=== PATIENT | female | born 1965 | race Caucasian/White ===

== ENCOUNTER 2023-11-28 17:36 | Emergency (ER) | payer OTHER, SELFPAY ==
[2023-11-28 17:39] VITALS: BP 177/100
[2023-11-28] MEDS: NSS 1000 IV (18:27)
[2023-11-28] MEDS: TORADOL 15 MG IV (18:27)
[2023-11-28] MEDS: ZOFRAN 4 MG IV (18:27)
[2023-11-28] MEDS: COMPAZINE 10 MG IV (18:39)
[2023-11-28 18:41] LABS: % Basophils 0.5 % (0-2); % Eosinophils 0.4 % (0-6); % Immature Granulocytes 0.4 % (0-0.5); % Lymphocytes 9.9 % (20.5-51.1); % Monocytes 3.6 % (1.7-9.3); % Neutrophils 85.2 % (42.2-75.2); Absolute Basophils 0.1 10^3/uL (0-0.2); Absolute Lymphocytes 1.1 10^3/uL (1.2-3.4); Absolute Monocytes 0.4 10^3/uL (0.1-0.6); Absolute Neutrophils 9.3 10^3/uL (1.4-6.5); Hematocrit 41.9 % (37.0-47.0); Hemoglobin 14.8 g/dL (12.0-16.0); Mean Corp Hgb Conc. 35.3 g/dL (33.0-37.0); Mean Corpuscular Hgb 30.3 pg (27.0-31.0); Mean Corpuscular Volume 85.7 fL (81.0-99.0); Nucleated Red Blood Cells % 0 %; Platelet Count 265 10^3/uL (130-400); Red Blood Cell Count 4.89 10^6/uL (4.20-5.40); Red Cell Dist. Width 12.5 % (11.5-14.5); White Blood Cell Count 10.9 10^3/uL (4.8-10.8)
[2023-11-28 18:52] LABS: ALT (SGPT) 37 U/L (0-35); AST (SGOT) 29 U/L (14-36); Albumin 4.8 g/dl (3.5-5.0); Alkaline Phosphatase 55 U/L (38-126); Blood Urea Nitrogen 14 mg/dl (7-17); Calcium 10.1 mg/dl (8.4-10.2); Carbon Dioxide 26 mmol/L (22-30); Chloride 105 mmol/L (98-107); Glucose 137 mg/dl (70-99); Lipase 54 U/L (23-300); Potassium 4.3 mmol/L (3.5-5.1); Sodium 140 mmol/L (135-145); Total Bilirubin 1.1 mg/dl (0.2-1.3); Total Protein 7.9 g/dl (6.3-8.2); eGFR > 60.00
[2023-11-28 19:02] VITALS: BP 171/79
--- NOTE | 2023-11-28 19:59 | ED.GENMED ---
History of Present Illness
General
Chief Complaint: Abdominal Pain
Source: patient
Exam Limitations: none
Time Seen by Provider: 11/28/23 18:02
Nursing documentation reviewed up to this point in time: agreed with
Travel History
Have you had any contact with someone who has COVID-19?: No
Do you have any symptoms of coronavirus? Fever > 100 degrees, chills, cough, shortness of breath, sore throat, loss of taste or smell, muscle aches, or headache?: No
History of Present Illness
History of Present Illness:
Patient to ED with complaint of epigastric abdominal pain since this AM. States she has had intestinal obstructions in the past and she feels that the pain is the same. Reports nausea, vomiting. No diarrhea. No fever/chills. Brought to ED by
spouse for eval.
Past History
Past History
ED Past Medical History: GERD, HTN, Psychiatric (anxiety) and Other (Distal small bowel obstruction April 2021)
ED Past Surgical History: Cholecystectomy and
Social History
Tobacco: Non-smoker
Alcohol: None
Drug: None
Personal:
Living: with family
Employment: Employed
Family History
Family History: Hypertension
Review of Systems
Review of Systems
Allergies reviewed?: Yes
All Other Systems: ROS reviewed and negative except as documented in HPI and ROS
Constitutional: Reports no symptoms
EENT: Reports no symptoms
Respiratory: Reports no symptoms
Cardiac: Reports no symptoms
ABD/GI: Reports abdominal pain (epigastric abdominal pain), nausea and vomiting
: Reports no symptoms
Musculoskeletal: Reports no symptoms
Skin: Reports no symptoms
Neurological: Reports no symptoms
Psychiatric: Reports no symptoms
Phy Exam
General Physical Exam
General Presentation: well appearing and no apparent distress
General age: appears stated age
General Skin: warm and dry
General Habitus: normal
General Mental: alert
General Hydration: appears well hydrated
Cardiovascular Exam
Cardiovascular Exam: regular rate/rhythm and no edema
Pulmonary Exam
Pulmonary Exam: lungs clear and no respiratory distress
Gastrointestinal Exam
Gastrointestinal Exam: normal bowel sounds, soft, no organomegaly, no pulsatile mass, non distended and no cva tenderness
Palpation: generalized: Moderate tenderness (epigastric)
Musculoskeletal Exam
Musculoskeletal Exam: full ROM and neuro vasc intact
Skin Exam
Skin Exam: normal color, warm/dry and no rash
Psychiatric Exam
Psychiatric Exam: normal mood/affect
Course
Orders/Labs/Results
Orders:
Orders
11/28/23 18:14
0.9% Sodium Chloride 1000 ml [Nss] 1,000 ml IV BOLUS
Ketorolac [Toradol] 15 mg IV NOW STA
Ondansetron Injectable [Zofran] 4 mg IV NOW STA
Obstruct Series W/PA Chest [CR Obstruct Series W/pa Chest] Urgent
Comment:
Reason For Exam: upper abd. pain. hx of obstruction
11/28/23 18:24
Complete Blood Count/With Diff Urgent
Comprehensive Metabolic Panel Urgent
Lipase Urgent
11/28/23 18:36
Prochlorperazine [Compazine] 10 mg IV NOW STA
11/28/23 19:06
Urinalysis Reflex To Culture Urgent
Date Specimen was Collected: 11/28/23
Time Specimen was Collected: 19:06
Abnormal Lab Results
11/28/23
18:24
WBC 10.9 H 10^3/uL
(4.8-10.8)
Absolute Neuts (auto) 9.3 H 10^3/uL
(1.4-6.5)
Absolute Lymphs (auto) 1.1 L 10^3/uL
(1.2-3.4)
Neutrophils % 85.2 H %
(42.2-75.2)
Lymphocytes % 9.9 L %
(20.5-51.1)
Glucose 137 H mg/dl
(70-99)
ALT 37 H U/L
(0-35)
11/28/23 18:24
11/28/23 18:24
Vital Signs
Initial and Last Documented VS:
Initial Vital Signs
Temp Pulse Resp BP Pulse Ox
97.8 F 71 18 177/100 100
11/28/23 17:39 11/28/23 17:39 11/28/23 17:39 11/28/23 17:39 11/28/23 17:39
Last Documented Vital Signs
Temp Pulse Resp BP Pulse Ox
97.8 F 72 18 171/79 99
11/28/23 17:39 11/28/23 19:02 11/28/23 19:02 11/28/23 19:02 11/28/23 19:02
*Critical Care Note
Total Time (30-74mins, 75-104mins- exclusive of procedures): Not Applicable
Update Note
Update Note:
Patient improved with IVF and toradol. State pain has resolved and she is requesting discharge home. Obstructions series neg for obstruction. Will discharge home. SHe was given instructions on s/s to return to ED and she is agreeable to plan.
ED Attending Note
-
Portions of this chart may have been created with voice recognition software.� Occasional wrong word or��sound alike� substitutions may have occurred due to the inherent limitations of voice recognition software.
Discharge Plan
Departure
Patient Disposition: Home (Routine Discharge)
Date of Disposition: 11/28/23
Time of Disposition: 19:21
Patient with high blood pressure during this ER visit?: No
Condition: Good
Covid-19: Not Applicable
Discharge Problem:
Abdominal pain
Instructions: Abdominal Pain
Prescriptions:
No Action
valsartan 80 MG tablet
160 mg PO BID
lorazepam 0.5 MG tablet
0.5 mg PO PRN PRN (Reason: anxiety)
Patient Comments:
04/16/2021: last filled 11/12/17, 30 tabs for 30 days from [facility]
taurine 500 MG capsule
1,000 mg PO BID
cholecalciferol (vitamin D3) 1,000 UNITS tablet
10,000 units PO DAILY
nebivolol 10 MG tablet
40 mg PO DAILY
isradipine 2.5 MG capsule
5 mg PO HS
famotidine 40 MG tablet
40 mg PO HS
isradipine 2.5 MG capsule
2.5 mg PO DAILY
pantoprazole 40 MG tablet,delayed release (DR/EC)
40 mg PO DAILY
amoxicillin 500 mg Tablet
500 mg PO TID
Referrals:
Ruddy Goodman Jr., DO [Family Provider] - Follow up in 2-3 days
Interventions
Interventions:
*Risk Screen - Suicide Last Done: 11/28/23 18:11
*General Assessment Last Done: 11/28/23 18:11
*Neglect/Abuse Screening Last Done: 11/28/23 18:11
ED- Fall Risk Assessment Last Done: 11/28/23 18:11
*Nursing Disposition Last Done: 11/28/23 19:28
JM-Czkhqs-Yecnurdekb Assessment Last Done: 11/28/23 18:11
Discharge Date and Time
Print Language: OCCITAN
== END 2023-11-28 20:56 | disposition home or self-care (01) ==
LOC: EMR 17:36
PROVIDERS: Nurse Practitioner; EMERGENCY PHYSICIAN Emergency Medicine; FAMILY PHYSICIAN Family Medicine
DX: R10.13 Epigastric pain (principal)
CPT/HCPCS: 99284; 96374; 96375 ×2; 96361; 74022; 80053; 83690; 85025

== ENCOUNTER 2023-12-29 00:45 | Emergency (ER) | payer OTHER, SELFPAY ==
[2023-12-29 00:47] VITALS: BP 186/104
--- NOTE | 2023-12-29 00:59 | ED.GENMED ---
History of Present Illness
General
Chief Complaint: Medication Reaction
Source: patient
Exam Limitations: none
Time Seen by Provider: 12/29/23 00:52
History of Present Illness
History of Present Illness:
See MDM
Past History
Past History
ED Past Medical History: GERD, HTN, Psychiatric (anxiety) and Other (Distal small bowel obstruction April 2021)
ED Past Surgical History: Cholecystectomy and
Social History
Tobacco: Non-smoker
Alcohol: None
Drug: None
Personal:
Living: with family
Employment: Employed
Family History
Family History: Hypertension
Phy Exam
Physical Exam
Physical Exam:
See MDM
Course
Orders/Labs/Results
Orders:
Orders
12/29/23 00:59
Electrocardiogram (*1) Urgent
Reason for Study: Hypertension, Benign
EKG- Treatment ONCE
Vital Signs
Initial and Last Documented VS:
Initial Vital Signs
Temp Pulse Resp BP Pulse Ox
97.8 F 74 24 186/104 98
12/29/23 00:47 12/29/23 00:47 12/29/23 00:47 12/29/23 00:47 12/29/23 00:47
Last Documented Vital Signs
Temp Pulse Resp BP Pulse Ox
97.8 F 69 20 136/81 94
12/29/23 00:47 12/29/23 01:30 12/29/23 01:30 12/29/23 01:30 12/29/23 01:30
MDM/Problems Addressed
Differential Diagnosis Includes:
HPI and MDM Narrative:
58-year-old female presenting for evaluation of accidentally taking an extra dose of Bystolic. Patient took her Bystolic at 4:00 today. Before she went to bed, she was going to take her other blood pressure medicine but took an extra dose of
Bystolic instead. She called poison control who indicated the concern for low heart rate. She presented for further evaluation. Patient denies purposeful self injury
Physical exam
General: Well appearing and non-toxic
HEENT: protecting airway
Neck: appears supple
CV: No evidence of cyanosis. Regular rate and rhythm
Resp: No accessory muscle use
Abd: Non-distended
Extremities: No deformities
Neuro: alert
Psych: Normal affect
Skin: Intact
Problems Addressed including Acute and Chronic Conditions affecting care:
1. Accidental overdose
Acuity: acute
Prognosis: stable
Details: Patient took 1 extra dose of Bystolic. She is not bradycardic. Will monitor
Updates
After observation, heart rate still in the 60s-70s and she feels comfortable going home
Differential Diagnosis (but not limited to): Accidental overdose, medication reaction
Testing considered: Blood work
Drug therapy (if applicable): OTC meds, please see d/c instruction regarding Rx drugs
Amount and/or Complexity of Data Reviewed
Clinical info obtained from: Patient
External data reviewed: N/A
Labs I independently reviewed (but not limited to): N/A
Radiology: N/A
Pulse Ox: not hypoxic
EKG independently reviewed:sinus rhythm, normal axis, no STEMI
Logistics Management Specialist: N/A
Critical Care: N/A
Risk of Complication:
Social Determinants of health: Good social support
Discussed with other providers: N/A
Escalation of Care includes Admit/Obs: After being observed in the Emergency Department, pt stable for discharge.
Occasional wrong word or 'sound a like' substitutions may have occurred due to the inherent limitations of voice recognition software. Read the chart carefully and recognize, using context, where substitutions have occurred.
*Critical Care Note
Total Time (30-74mins, 75-104mins- exclusive of procedures): Not Applicable
ED Attending Note
-
Portions of this chart may have been created with voice recognition software.� Occasional wrong word or��sound alike� substitutions may have occurred due to the inherent limitations of voice recognition software.
Discharge Plan
Departure
Patient Disposition: Home (Routine Discharge)
Date of Disposition: 12/29/23
Time of Disposition: 01:57
Patient with high blood pressure during this ER visit?: No
Discharge Problem:
Accidental overdose
Prescriptions:
No Action
lorazepam 0.5 MG tablet
0.5 mg PO PRN PRN (Reason: anxiety)
Patient Comments:
04/16/2021: last filled 11/12/17, 30 tabs [facility]
taurine 500 MG capsule
1,000 mg PO BID
cholecalciferol (vitamin D3) 1,000 UNITS tablet
4,000 units PO DAILY
nebivolol 10 MG tablet
40 mg PO DAILY
isradipine 2.5 MG capsule
5 mg PO BID
famotidine 40 MG tablet
40 mg PO HS
ethacrynic acid [Edecrin] 25 mg Tablet
12.5 mg PO DAILY
Activity Restrictions/Additional Instructions:
As we discussed, you can continue to take your medications as prescribed.
Interventions
Interventions:
*Risk Screen - Suicide Last Done: 12/29/23 00:47
*General Assessment Last Done: 12/29/23 01:01
*Neglect/Abuse Screening Last Done: 12/29/23 00:47
ED- Fall Risk Assessment Last Done: 12/29/23 01:01
*ED COVID-19 Vaccine History Last Done: 12/29/23 01:01
ED-Skin Assessment Last Done: 12/29/23 01:15
ED- Pulmonary Assessment Last Done: 12/29/23 01:15
ED-EENT Assessment Last Done: 12/29/23 01:15
Discharge Date and Time
Print Language: SETSWANA
[2023-12-29 01:00] VITALS: BMI 41.9
[2023-12-29 01:13] VITALS: BP 141/81
[2023-12-29 01:30] VITALS: BP 136/81
== END 2023-12-29 02:08 | disposition home or self-care (01) ==
LOC: EMR 00:45
PROVIDERS: EMERGENCY PHYSICIAN Student in an Organized Health Care Education/Training Program; FAMILY PHYSICIAN Family Medicine
DX: T50.901A Poisoning by unspecified drugs, medicaments and biological substances, accidental (unintentional), initial encounter (principal); Y92.9 Unspecified place or not applicable; K21.9 Gastro-esophageal reflux disease without esophagitis; I10 Essential (primary) hypertension
CPT/HCPCS: 99283; 93005

== ENCOUNTER 2024-02-17 13:47 | Emergency (ER) | payer OTHER, SELFPAY ==
[2024-02-17 13:49] VITALS: BP 179/120
[2024-02-17 15:05] LABS: % Basophils 0.4 % (0-2); % Immature Granulocytes 0.5 % (0-0.5); % Monocytes 4.9 % (1.7-9.3); % Neutrophils 77.2 % (42.2-75.2); Absolute Basophils 0.1 10^3/uL (0-0.2); Absolute Eosinophils 0.1 10^3/uL (0-0.7); Absolute Immature Granulocytes 0.1 10^3/uL (0-0.05); Absolute Lymphocytes 1.9 10^3/uL (1.2-3.4); Absolute Monocytes 0.6 10^3/uL (0.1-0.6); Absolute Neutrophils 9.2 10^3/uL (1.4-6.5); Hematocrit 45.5 % (37.0-47.0); Hemoglobin 15.6 g/dL (12.0-16.0); Mean Corp Hgb Conc. 34.3 g/dL (33.0-37.0); Mean Corpuscular Hgb 30.1 pg (27.0-31.0); Mean Corpuscular Volume 87.8 fL (81.0-99.0); Nucleated Red Blood Cells % 0 %; Platelet Count 280 10^3/uL (130-400); Red Blood Cell Count 5.18 10^6/uL (4.20-5.40); Red Cell Dist. Width 12.3 % (11.5-14.5); White Blood Cell Count 11.9 10^3/uL (4.8-10.8)
[2024-02-17 15:19] LABS: Potassium 4.4 mmol/L (3.5-5.1); Sodium 138 mmol/L (135-145)
[2024-02-17 15:21] LABS: ALT (SGPT) 38 U/L (0-35); AST (SGOT) 31 U/L (14-36); Albumin 5.1 g/dl (3.5-5.0); Alkaline Phosphatase 64 U/L (38-126); Blood Urea Nitrogen 15 mg/dl (7-17); Calcium 10.6 mg/dl (8.4-10.2); Carbon Dioxide 24 mmol/L (22-30); Chloride 102 mmol/L (98-107); Glucose 127 mg/dl (70-99); Lipase 61 U/L (23-300); Total Bilirubin 1.3 mg/dl (0.2-1.3); eGFR > 60.00
--- NOTE | 2024-02-17 15:53 | ED.GENMED ---
History of Present Illness
General
Chief Complaint: Abdominal Pain
Source: patient
Exam Limitations: none
Time Seen by Provider: 02/17/24 15:39
History of Present Illness
History of Present Illness:
58-year-old female presents with onset of abdominal pain nausea vomiting at 9 AM this morning. She has episodes like this in the past. She does have a history of partial small bowel obstruction. She was here last for this issue in November of this
year. She notes the pain is in the center of her abdomen. Pain does not radiate to the back. No associated chest pain. She has been moving her bowels.
Past History
Past History
ED Past Medical History: GERD, HTN, Psychiatric (anxiety) and Other (Distal small bowel obstruction April 2021)
ED Past Surgical History: Cholecystectomy and
Social History
Tobacco: Non-smoker
Alcohol: None
Drug: None
Personal:
Living: with family
Employment: Employed
Family History
Family History: Hypertension
Phy Exam
Physical Exam
Physical Exam:
General: Well-appearing female no acute respiratory distress HEENT: Normocephalic
Neck supple heart: Regular rate and rhythm lungs: Clear no wheeze or rales abdomen is soft tender to the mid abdomen no guarding rebound normal bowel sounds nondistended
Extremities: No cyanosis
Course
Orders/Labs/Results
Orders:
Orders
02/17/24 13:52
Electrocardiogram (*1) Urgent
Reason for Study: Abdominal Pain
EKG- Treatment ONCE
02/17/24 14:51
Obstruct Series W/PA Chest [CR Obstruct Series W/pa Chest] Urgent
Comment:
Reason For Exam: abd pain hx sbo
02/17/24 14:55
Complete Blood Count/With Diff Urgent
Comprehensive Metabolic Panel Urgent
Lipase Urgent
02/17/24 15:48
0.9% Sodium Chloride 1000 ml [Nss] 1,000 ml IV BOLUS
Ketorolac [Toradol] 15 mg IV NOW STA
Mag Hydrox/Al Hydrox/Simeth [Maalox] 30 ml Phenobarb/Hyoscy/Atropine/Scop [] 10 ml PO NOW
Prochlorperazine [Compazine] 10 mg IV NOW STA
02/17/24 16:05
Mag Hydrox/Al Hydrox/Simeth [Maalox] 30 ml .ROUTE .STK-MED ONE
Phenobarb/Hyoscy/Atropine/Scop [] 10 ml .ROUTE .STK-MED ONE
02/17/24 16:56
CT Abd/pelvis W Iv Cont Urgent
Comment:
Reason For Exam: abdominal pain, history of sbo
Abnormal Lab Results
02/17/24
14:55
WBC 11.9 H 10^3/uL
(4.8-10.8)
Abs Immat Gran (auto) 0.1 H 10^3/uL
(0-0.05)
Absolute Neuts (auto) 9.2 H 10^3/uL
(1.4-6.5)
Neutrophils % 77.2 H %
(42.2-75.2)
Lymphocytes % 16.0 L %
(20.5-51.1)
Glucose 127 H mg/dl
(70-99)
Calcium 10.6 H mg/dl
(8.4-10.2)
ALT 38 H U/L
(0-35)
Albumin 5.1 H g/dl
(3.5-5.0)
02/17/24 14:55
02/17/24 14:55
Vital Signs
Initial and Last Documented VS:
Initial Vital Signs
Temp Pulse BP Pulse Ox
97.8 F 71 179/120 97
02/17/24 13:49 02/17/24 13:49 02/17/24 13:49 02/17/24 13:49
Last Documented Vital Signs
Temp Pulse Resp BP Pulse Ox
97.8 F 73 20 179/90 98
02/17/24 13:49 02/17/24 21:50 02/17/24 21:50 02/17/24 21:50 02/17/24 21:50
*Critical Care Note
Total Time (30-74mins, 75-104mins- exclusive of procedures): Not Applicable
Update Note
Update Note:
Obstruction series concerning for possible small bowel obstruction. This is followed by CT scan of the abdomen which does demonstrate small bowel obstruction with likely transition point in the jejunum.
Explained these results to the patient.
Recommended admission to hospital for further evaluation and treatment. Patient is declining admission. She states she is tolerating PO fluids and had piece of a turkey sandwich and has no nausea. Explained she could have further complications
including bowel ischemia, need for surgery or ostomy and further illness. Patient aware.
ED Attending Note
-
Portions of this chart may have been created with voice recognition software.� Occasional wrong word or��sound alike� substitutions may have occurred due to the inherent limitations of voice recognition software.
Discharge Plan
Departure
Patient Disposition: Home (Routine Discharge)
Date of Disposition: 02/17/24
Time of Disposition: 21:43
Patient with high blood pressure during this ER visit?: No
Discharge Problem:
Small bowel obstruction
Instructions: Small bowel obstruction
Prescriptions:
No Action
lorazepam 0.5 MG tablet
0.5 mg PO PRN PRN (Reason: anxiety)
Patient Comments:
04/16/2021: last filled 11/12/17, 30 tabs for 30 days from [facility]
taurine 500 MG capsule
1,000 mg PO BID
cholecalciferol (vitamin D3) 1,000 UNITS tablet
4,000 units PO DAILY
nebivolol 10 MG tablet
40 mg PO DAILY
isradipine 2.5 MG capsule
5 mg PO BID
famotidine 40 MG tablet
40 mg PO HS
ethacrynic acid [Edecrin] 25 mg Tablet
12.5 mg PO DAILY
Referrals:
Ruddy Goodman Jr., DO [Family Provider] -
Activity Restrictions/Additional Instructions:
As discussed, it was recommended you stay in the hospital however he decided against staying in the hospital. Please return here for any worsening pain vomiting fever or other concerning findings.
Interventions
Interventions:
*Risk Screen - Suicide Last Done: 02/17/24 16:30
*General Assessment Last Done: 02/17/24 16:30
*Neglect/Abuse Screening Last Done: 02/17/24 16:30
ED- Fall Risk Assessment Last Done: 02/17/24 21:30
*ED COVID-19 Vaccine History Last Done: 02/17/24 16:32
*Nursing Disposition Last Done: 02/17/24 21:50
LN-Jgeyob-Uubmoudrks Assessment Last Done: 02/17/24 16:30
Discharge Date and Time
Discharge Date/Time: 02/17/24 21:50
Print Language: SINHALA
[2024-02-17] MEDS: MAALOX 40 PO (16:09)
[2024-02-17] MEDS: COMPAZINE 10 MG IV (16:17)
[2024-02-17] MEDS: NSS 1000 IV (16:17)
[2024-02-17 16:30] VITALS: BP 149/95
[2024-02-17 18:03] VITALS: BP 107/76
[2024-02-17 21:50] VITALS: BP 179/90
== END 2024-02-17 21:50 | disposition home or self-care (01) ==
LOC: EMR 13:47
PROVIDERS: EMERGENCY PHYSICIAN Emergency Medicine; FAMILY PHYSICIAN Family Medicine
DX: R10.9 Unspecified abdominal pain (principal); R11.2 Nausea with vomiting, unspecified
CPT/HCPCS: 99284; 96374; 96375; 96361; 74022; 74177; 80053; 83690; 85025; 93005; Q9967

== ENCOUNTER → 2024-03-23 11:12 | Outpatient (REF) | payer OTHER, SELFPAY | LOC: HWRAD 11:12 | PROVIDERS: ATTENDING PHYSICIAN Family Medicine | DX: Z13.820 Encounter for screening for osteoporosis (principal) | CPT/HCPCS: 77080 ==

== ENCOUNTER → 2024-05-03 06:15 | Day surgery (SDC) | payer OTHER, SELFPAY | LOC: GI 06:15 | PROVIDERS: ATTENDING PHYSICIAN Internal Medicine | DX: R10.84 Generalized abdominal pain (principal); R93.3 Abnormal findings on diagnostic imaging of other parts of digestive tract; K64.8 Other hemorrhoids; R11.2 Nausea with vomiting, unspecified; K22.2 Esophageal obstruction; K44.9 Diaphragmatic hernia without obstruction or gangrene; K31.7 Polyp of stomach and duodenum; D17.5 Benign lipomatous neoplasm of intra-abdominal organs; K29.50 Unspecified chronic gastritis without bleeding; K31.89 Other diseases of stomach and duodenum; K22.89 Other specified disease of esophagus | CPT/HCPCS: 45380; 43239; 88305; 88342 ==

== ENCOUNTER → 2024-06-03 09:34 | Outpatient (REF) | payer OTHER, SELFPAY ==
[2024-06-03 10:12] LABS: % Basophils 1.1 % (0-2); % Eosinophils 5.7 % (0-6); % Immature Granulocytes 0.5 % (0-0.5); % Lymphocytes 32.9 % (20.5-51.1); % Monocytes 8.7 % (1.7-9.3); % Neutrophils 51.1 % (42.2-75.2); Absolute Basophils 0.1 10^3/uL (0-0.2); Absolute Eosinophils 0.4 10^3/uL (0-0.7); Absolute Lymphocytes 2.5 10^3/uL (1.2-3.4); Absolute Monocytes 0.7 10^3/uL (0.1-0.6); Absolute Neutrophils 3.9 10^3/uL (1.4-6.5); Hematocrit 43.6 % (37.0-47.0); Hemoglobin 14.7 g/dL (12.0-16.0); Mean Corp Hgb Conc. 33.7 g/dL (33.0-37.0); Mean Corpuscular Hgb 30.9 pg (27.0-31.0); Mean Corpuscular Volume 91.6 fL (81.0-99.0); Mean Platelet Volume 10.2 fL (7.4-10.4); Nucleated Red Blood Cells % 0 %; Platelet Count 233 10^3/uL (130-400); Red Blood Cell Count 4.76 10^6/uL (4.20-5.40); Red Cell Dist. Width 12.5 % (11.5-14.5); White Blood Cell Count 7.6 10^3/uL (4.8-10.8)
[2024-06-03 10:39] LABS: ALT (SGPT) 35 U/L (0-35); AST (SGOT) 26 U/L (14-36); Albumin 4.6 g/dl (3.5-5.0); Alkaline Phosphatase 66 U/L (38-126); Blood Urea Nitrogen 13 mg/dl (7-17); Calcium 9.5 mg/dl (8.4-10.2); Carbon Dioxide 25 mmol/L (22-30); Chloride 107 mmol/L (98-107); Glucose 108 mg/dl (70-99); HDL Cholesterol 40 mg/dl; LDL Cholesterol, Calculated 123 mg/dl; Potassium 4.3 mmol/L (3.5-5.1); Sodium 144 mmol/L (135-145); Total Bilirubin 0.5 mg/dl (0.2-1.3); Total Cholesterol 188 mg/dl (50-199); Total Protein 7.4 g/dl (6.3-8.2); Triglyceride 126 mg/dl (10-149); Very Low Density Lipoprotein 25 mg/dl (0-30); eGFR > 60.00
[2024-06-03 10:51] LABS: Vitamin D, 25-OH*** 52.8 ng/mL (30-80)
[2024-06-03 11:02] LABS: Glycohemoglobin (HgbA1c) 5.8 % (4.0-5.6)
== END ==
LOC: REG 09:34
PROVIDERS: ATTENDING PHYSICIAN Family Medicine
DX: R73.01 Impaired fasting glucose (principal); E78.5 Hyperlipidemia, unspecified; E55.9 Vitamin D deficiency, unspecified; R53.83 Other fatigue
CPT/HCPCS: 36415; 80053; 80061; 82306; 83036; 85025

== ENCOUNTER → 2024-06-29 11:31 | Outpatient (REF) | payer OTHER, SELFPAY | LOC: HWRAD 11:31 | PROVIDERS: ATTENDING PHYSICIAN Family Medicine; REFERRING PHYSICIAN Obstetrics & Gynecology | DX: D17.30 Benign lipomatous neoplasm of skin and subcutaneous tissue of unspecified sites (principal); Z12.31 Encounter for screening mammogram for malignant neoplasm of breast | CPT/HCPCS: 76882; 77063; 77067 ==

== ENCOUNTER 2024-07-09 14:49 | Emergency (ER) | payer OTHER, SELFPAY ==
[2024-07-09 14:54] VITALS: BP 173/113
[2024-07-09 15:13] LABS: % Basophils 0.3 % (0-2); % Eosinophils 0.7 % (0-6); % Immature Granulocytes 0.5 % (0-0.5); % Lymphocytes 20.2 % (20.5-51.1); % Monocytes 5.5 % (1.7-9.3); % Neutrophils 72.8 % (42.2-75.2); Absolute Eosinophils 0.1 10^3/uL (0-0.7); Absolute Immature Granulocytes 0.1 10^3/uL (0-0.05); Absolute Lymphocytes 1.9 10^3/uL (1.2-3.4); Absolute Monocytes 0.5 10^3/uL (0.1-0.6); Absolute Neutrophils 6.8 10^3/uL (1.4-6.5); Hematocrit 45.1 % (37.0-47.0); Hemoglobin 15.5 g/dL (12.0-16.0); Mean Corp Hgb Conc. 34.4 g/dL (33.0-37.0); Mean Corpuscular Hgb 30.3 pg (27.0-31.0); Mean Corpuscular Volume 88.3 fL (81.0-99.0); Mean Platelet Volume 9.9 fL (7.4-10.4); Nucleated Red Blood Cells % 0 %; Platelet Count 264 10^3/uL (130-400); Red Blood Cell Count 5.11 10^6/uL (4.20-5.40); Red Cell Dist. Width 12.2 % (11.5-14.5); White Blood Cell Count 9.4 10^3/uL (4.8-10.8)
[2024-07-09 15:24] LABS: Lactic Acid 1.7 mmol/L (0.7-2.0)
[2024-07-09 15:30] LABS: ALT (SGPT) 48 U/L (0-35); AST (SGOT) 37 U/L (14-36); Alkaline Phosphatase 58 U/L (38-126); Blood Urea Nitrogen 14 mg/dl (7-17); Calcium 9.8 mg/dl (8.4-10.2); Carbon Dioxide 22 mmol/L (22-30); Chloride 104 mmol/L (98-107); Glucose 133 mg/dl (70-99); Lipase 62 U/L (23-300); Potassium 4.3 mmol/L (3.5-5.1); Sodium 139 mmol/L (135-145); Total Bilirubin 1.4 mg/dl (0.2-1.3); Total Protein 8.1 g/dl (6.3-8.2); eGFR > 60.00
[2024-07-09 16:20] VITALS: BMI 41.8
[2024-07-09 16:25] VITALS: BP 154/99
--- NOTE | 2024-07-09 16:35 | ED.GENMED ---
History of Present Illness
<Barb Ford PA-C - Last Filed: 07/09/24 20:37>
General
Chief Complaint: Abdominal Symptoms
Source: patient
Exam Limitations: none
Time Seen by Provider: 07/09/24 16:22
Nursing documentation reviewed up to this point in time: agreed with
History of Present Illness
History of Present Illness:
Patient is a 5-year-old female with history of hypertension, small bowel obstructions presenting to the emergency department with abdominal pain. Patient reports abdominal discomfort this morning shortly followed by upper abdominal pain and
vomiting. Patient came to the emergency department given concern for small bowel obstruction as she does have a history of this. Patient states that pain somewhat subsided while in the waiting room. However�she does still endorse some mild vague
upper abdominal discomfort.
Patient denies any associated fever, chills, chest pain or shortness of breath. Patient denies any diarrhea or constipation. No urinary symptoms. No sick contacts.
She does have a history of 'pseudoobstruction' and was recommended that she come to the emergency department at next occurrence from her GI doctor.
Past History
<Barb Ford PA-C - Last Filed: 07/09/24 20:37>
Past History
ED Past Medical History: GERD, HTN, Psychiatric (anxiety) and Other (Distal small bowel obstruction April 2021)
ED Past Surgical History: Cholecystectomy and
Social History
Tobacco: Non-smoker
Alcohol: None
Drug: None
Personal:
Living: with family
Employment: Employed
Family History
Family History: Hypertension
Review of Systems
<Barb Ford PA-C - Last Filed: 07/09/24 20:37>
Review of Systems
Allergies reviewed?: Yes
All Other Systems: ROS reviewed and negative except as documented in HPI and ROS
Phy Exam
<Barb Ford PA-C - Last Filed: 07/09/24 20:37>
Physical Exam
Physical Exam:
Vitals: Hypertensive, otherwise vital signs are stable. Afebrile
General: Patient is well appearing, no acute distress. Nontoxic appearing
Skin: Warm and dry, no rashes or lesions
Head: Normocephalic, atraumatic
Eyes: Sclera nonicteric. EOMs intact. No nystagmus.
Throat: Protecting airway
Neck: Normal ROM, no cervical spine tenderness, no meningismus
Cardiac: Regular rate and rhythm, no murmurs.
Pulm: Normal respiratory effort, no wheezes, rales, rhonchi heard on exam.
Abdomen: Abdomen soft. Very mild upper abdominal tenderness no rebound tenderness or guarding. Normal bowel sounds
Extremities: No evidence of cyanosis or edema. DP pulses palpable
Neuro: AAOx3. Grossly intact.
Psychiatric: Normal affect.
Course
<Barb Ford PA-C - Last Filed: 07/09/24 20:37>
Orders/Labs/Results
Orders:
Orders
07/09/24 15:03
Complete Blood Count/With Diff Urgent
Comprehensive Metabolic Panel Urgent
Lactate Level [Lactic Acid] Urgent
Lipase Urgent
07/09/24 16:33
Electrocardiogram (*1) Urgent
Reason for Study: Abdominal Pain
EKG- Treatment ONCE
0.9% Sodium Chloride 1000 ml [Nss] 1,000 ml IV BOLUS
Prochlorperazine [Compazine] 10 mg IV NOW STA
Obstruct Series W/PA Chest [CR Obstruct Series W/pa Chest] Urgent
Comment:
Reason For Exam: abdominal pain, hx sbo
07/09/24 18:09
CT Abd/pelvis W Iv Cont Urgent
Comment:
Reason For Exam: Upper abdominal pain, hx sbo
Abnormal Lab Results
07/09/24
15:03
Abs Immat Gran (auto) 0.1 H 10^3/uL
(0-0.05)
Absolute Neuts (auto) 6.8 H 10^3/uL
(1.4-6.5)
Lymphocytes % 20.2 L %
(20.5-51.1)
Glucose 133 H mg/dl
(70-99)
Total Bilirubin 1.4 H mg/dl
(0.2-1.3)
AST 37 H U/L
(14-36)
ALT 48 H U/L
(0-35)
07/09/24 15:03
07/09/24 15:03
Vital Signs
Initial and Last Documented VS:
Initial Vital Signs
Temp Pulse Resp BP Pulse Ox
98.4 F 79 20 173/113 100
07/09/24 14:54 07/09/24 14:54 07/09/24 14:54 07/09/24 14:54 07/09/24 14:54
Last Documented Vital Signs
Temp Pulse Resp BP Pulse Ox
98.4 F 83 19 159/72 95
07/09/24 14:54 07/09/24 19:50 07/09/24 19:50 07/09/24 19:50 07/09/24 19:50
<Zion Ga MD - Last Filed: 07/09/24 20:40>
Orders/Labs/Results
Orders:
Orders
07/09/24 15:03
Complete Blood Count/With Diff Urgent
Comprehensive Metabolic Panel Urgent
Lactate Level [Lactic Acid] Urgent
Lipase Urgent
07/09/24 16:33
Electrocardiogram (*1) Urgent
Reason for Study: Abdominal Pain
EKG- Treatment ONCE
0.9% Sodium Chloride 1000 ml [Nss] 1,000 ml IV BOLUS
Prochlorperazine [Compazine] 10 mg IV NOW STA
Obstruct Series W/PA Chest [CR Obstruct Series W/pa Chest] Urgent
Comment:
Reason For Exam: abdominal pain, hx sbo
07/09/24 18:09
CT Abd/pelvis W Iv Cont Urgent
Comment:
Reason For Exam: Upper abdominal pain, hx sbo
Abnormal Lab Results
07/09/24
15:03
Abs Immat Gran (auto) 0.1 H 10^3/uL
(0-0.05)
Absolute Neuts (auto) 6.8 H 10^3/uL
(1.4-6.5)
Lymphocytes % 20.2 L %
(20.5-51.1)
Glucose 133 H mg/dl
(70-99)
Total Bilirubin 1.4 H mg/dl
(0.2-1.3)
AST 37 H U/L
(14-36)
ALT 48 H U/L
(0-35)
07/09/24 15:03
07/09/24 15:03
Vital Signs
Initial and Last Documented VS:
Initial Vital Signs
Temp Pulse Resp BP Pulse Ox
98.4 F 79 20 173/113 100
07/09/24 14:54 07/09/24 14:54 07/09/24 14:54 07/09/24 14:54 07/09/24 14:54
Last Documented Vital Signs
Temp Pulse Resp BP Pulse Ox
98.4 F 83 19 159/72 95
07/09/24 14:54 07/09/24 19:50 07/09/24 19:50 07/09/24 19:50 07/09/24 19:50
<Barb Ford PA-C - Last Filed: 07/09/24 20:37>
MDM/Problems Addressed
Differential Diagnosis Includes:
Not limited to: Gastritis, GERD, bowel obstruction, constipation, pancreatitis, etc.
MDM/Problems Addressed:
59-year-old female with history as documented presenting with upper abdominal discomfort and vomiting starting this morning. Symptoms did improve after arrival to emergency department. She does have some persistent vague upper abdominal
discomfort. Patient denies any sick contacts. No fevers, chills, chest pain, or shortness of breath. Patient hypertensive on arrival although somewhat decreased by my assessment. Patient is afebrile otherwise stable vital signs. On exam patient
is well-appearing, in no apparent distress. Abdomen is soft with very mild upper abdominal tenderness no rebound tenderness or guarding. She has normal bowel sounds. Heart regular rate and rhythm. Lungs clear bilaterally. Patient is perfusing
well. Patient declines any analgesia at this time. Will give IV fluids and antiemetic. Labs initiated in triage and reviewed. No clinically significant abnormalities. Lipase is normal. Will check obstruction series. Will closely monitor and
reassess
Update: Obstruction series reviewed�no evidence of bowel obstruction. Into reassess patient at bedside who is still having some lingering upper abdominal discomfort. Will proceed with CT scan to rule out obstruction versus other intra-abdominal
pathology.
Update 8:20PM: CT report reviewed. Possible partial SBO vs ileus vs enteritis. Discussed w/ patient. Patient clinically very well appearing with minimal discomfort. Patient comfortable going home. Recommend clear liquids for next 24 hours and return
with any worsening symptoms. Stable for discharge home. F/u with GI outpatient. Patient seen with attending physician.
Chronic conditions affecting care:
Hypertension, history of bowel obstruction
Acute Exacerbation and/or Progression of Chronic Illness:
Acutely hypertensive
<Barb Ford PA-C - Last Filed: 07/09/24 20:37>
*Radiology
Radiology exam reviewed: preliminary read by ED provider (Obstruction series reviewed by me-no evidence of bowel obstruction)
*Pulse Oximetry
Patient hypoxic: no
*EKG
Interpreted by ED Provider?: Yes
EKG Intrepretation Date: 07/09/24
Interpretation: normal
Comparison EKG: no changes
Heart Rate: 69
Rate: normal
Rhythm: sinus
[place]: normal axis
Interval: normal QT interval
QRS Pattern: normal QRS
Ischemia: no ischemia
*Film Flat Inspector Interpretation
Rate: Film Flat Inspector- N/A
*Critical Care Note
Total Time (30-74mins, 75-104mins- exclusive of procedures): Not Applicable
ED Attending Note
<Barb Ford PA-C - Last Filed: 07/09/24 20:37>
-
Portions of this chart may have been created with voice recognition software.� Occasional wrong word or��sound alike� substitutions may have occurred due to the inherent limitations of voice recognition software.
<Zion Ga MD - Last Filed: 07/09/24 20:40>
ED Attending Note
Patient seen and examined by attending physician: Yes
I performed the substantive portion of visit, reviewed & personally made and approve the management plan that is documented in note by myself or MALISSA.: Yes
ED Attending Note:
59-year-old female with a history of SBO presents with onset of upper abdominal pain nausea and vomiting this morning. She actually feels much better at this time. Pain is minimal to none. She drank liquid here. She has a history of SBO's always
self resolving. Diagnosis pseudoobstruction. No fever no other complaints
On exam patient is nontoxic in no distress. She is warm and dry. She is perfusing well. Lungs are clear and equal. Heart regular rate and rhythm. Abdomen elevated BMI bowel sounds present. No real point tenderness rebound or guarding.
CT scan shows some fluid distention of the jejunal small bowel loops. SBO partial ileus ileus enteritis.
Long history of similar episodes. Feels much better now. Comfortable with clear liquids and outpatient observation. Minimal nonspecific LFT elevation
Discharge Plan
Departure
Patient Disposition: Home (Routine Discharge)
Date of Disposition: 07/09/24
Time of Disposition: 20:33
Patient with high blood pressure during this ER visit?: Yes
Condition: Good
Covid-19: Not Applicable
Discharge Problem:
Abdominal pain
Instructions: Abdominal Pain, BLOOD PRESSURE
Prescriptions:
No Action
lorazepam 0.5 MG tablet
0.5 mg PO PRN PRN (Reason: anxiety)
Patient Comments:
04/16/2021: last filled 11/12/17, 30 tabs for [facility] days from [facility]
taurine 500 MG capsule
1,000 mg PO BID
cholecalciferol (vitamin D3) 1,000 UNITS tablet
4,000 units PO DAILY
nebivolol 10 MG tablet
40 mg PO DAILY
isradipine 2.5 MG capsule
5 mg PO BID
famotidine 40 MG tablet
40 mg PO HS
ethacrynic acid [Edecrin] 25 mg Tablet
12.5 mg PO DAILY
Referrals:
Santos Quiroz MD [Active] - Keep scheduled appt
Ruddy Goodman Jr., [Family Provider] -
Activity Restrictions/Additional Instructions:
RETURN TO THE EMERGENCY DEPARTMENT WITH ANY FEVERS, SEVERE ABDOMINAL PAIN, INTRACTABLE NAUSEA/VOMITING, SIGNS OF SEVERE DEHYDRATION, WORSENING IN CURRENT SYMPTOMS, OR ANY OTHER CONCERNS
-Is important stay well-hydrated. Recommended clear liquid diet over the past 24 hours. Return with any worsening symptoms.
-You should follow-up with your GI doctor for further evaluation/management as scheduled
Monitor your symptoms closely and return to the emergency department with any acute worsening/new symptoms or any other concern
Interventions
Interventions:
*Risk Screen - Suicide Last Done: 07/09/24 14:54
*General Assessment Last Done: 07/09/24 14:54
*Neglect/Abuse Screening Last Done: 07/09/24 14:54
[facility] Assessment Last Done: 07/09/24 16:21
Discharge Date and Time
Print Language: [place]ET[place]ESE
[2024-07-09] MEDS: COMPAZINE 10 MG IV (16:54)
[2024-07-09] MEDS: NSS 1000 IV (16:54)
[2024-07-09 19:50] VITALS: BP 159/72
[2024-07-09 20:00] VITALS: BP 168/96
== END 2024-07-09 20:56 | disposition home or self-care (01) ==
LOC: EMR 14:49
PROVIDERS: EMERGENCY PHYSICIAN Emergency Medicine; FAMILY PHYSICIAN Family Medicine
DX: R10.10 Upper abdominal pain, unspecified (principal); I10 Essential (primary) hypertension; Z90.49 Acquired absence of other specified parts of digestive tract; K21.9 Gastro-esophageal reflux disease without esophagitis; Z87.19 Personal history of other diseases of the digestive system
CPT/HCPCS: 99285; 96374; 96361; 74022; 74177; 80053; 83605; 83690; 85025; 93005; Q9967

== ENCOUNTER → 2024-07-11 11:31 | Outpatient (REF) | payer OTHER, SELFPAY ==
[2024-07-13 16:59] LABS: Calprotectin, Fecal 31 ug/g (<=49)
== END ==
LOC: REG 11:31
PROVIDERS: ATTENDING PHYSICIAN Internal Medicine; FAMILY PHYSICIAN Family Medicine
DX: K52.9 Noninfective gastroenteritis and colitis, unspecified (principal)
CPT/HCPCS: 83993

== ENCOUNTER → 2024-08-17 08:12 | Outpatient (REF) | payer OTHER, SELFPAY | LOC: RAD 08:12 | PROVIDERS: ATTENDING PHYSICIAN Internal Medicine; FAMILY PHYSICIAN Family Medicine | DX: K56.600 Partial intestinal obstruction, unspecified as to cause (principal) | CPT/HCPCS: 74019 ==

== ENCOUNTER → 2024-08-23 14:52 | Outpatient (REF) | payer OTHER, SELFPAY | LOC: RAD 14:52 | PROVIDERS: ATTENDING PHYSICIAN Internal Medicine; FAMILY PHYSICIAN Family Medicine | DX: K59.00 Constipation, unspecified (principal) | CPT/HCPCS: 74018 ==

== ENCOUNTER → 2024-08-24 12:37 | Outpatient (REF) | payer OTHER, SELFPAY | LOC: WDC 12:37 | PROVIDERS: ATTENDING PHYSICIAN Surgery; FAMILY PHYSICIAN Family Medicine | DX: R92.2 Inconclusive mammogram (principal); R92.30 Dense breasts, unspecified; Z91.89 Other specified personal risk factors, not elsewhere classified | CPT/HCPCS: 76641 ==

== ENCOUNTER → 2024-08-28 15:31 | Outpatient (REF) | payer OTHER, SELFPAY ==
[2024-08-28 17:06] LABS: ALT (SGPT) 51 U/L (0-35); AST (SGOT) 29 U/L (14-36); Albumin 5.1 g/dl (3.5-5.0); Alkaline Phosphatase 60 U/L (38-126); Blood Urea Nitrogen 16 mg/dl (7-17); Calcium 10.1 mg/dl (8.4-10.2); Carbon Dioxide 25 mmol/L (22-30); Chloride 101 mmol/L (98-107); Glucose 106 mg/dl (70-99); Potassium 4.4 mmol/L (3.5-5.1); Sodium 136 mmol/L (135-145); Total Bilirubin 0.9 mg/dl (0.2-1.3); eGFR > 60.00
[2024-08-28 17:34] LABS: Vitamin D, 25-OH*** 57.1 ng/mL (30-80)
[2024-08-28 17:44] LABS: % Basophils 0.7 % (0-2); % Eosinophils 4.8 % (0-6); % Immature Granulocytes 0.4 % (0-0.5); % Monocytes 8.2 % (1.7-9.3); % Neutrophils 53.9 % (42.2-75.2); Absolute Basophils 0.1 10^3/uL (0-0.2); Absolute Eosinophils 0.4 10^3/uL (0-0.7); Absolute Lymphocytes 2.7 10^3/uL (1.2-3.4); Absolute Monocytes 0.7 10^3/uL (0.1-0.6); Absolute Neutrophils 4.6 10^3/uL (1.4-6.5); Hematocrit 43.6 % (37.0-47.0); Hemoglobin 14.5 g/dL (12.0-16.0); Mean Corp Hgb Conc. 33.3 g/dL (33.0-37.0); Mean Corpuscular Volume 90.3 fL (81.0-99.0); Mean Platelet Volume 10.6 fL (7.4-10.4); Nucleated Red Blood Cells % 0 %; Platelet Count 250 10^3/uL (130-400); Red Blood Cell Count 4.83 10^6/uL (4.20-5.40); Red Cell Dist. Width 12.7 % (11.5-14.5); White Blood Cell Count 8.6 10^3/uL (4.8-10.8)
[2024-08-28 17:48] LABS: TSH Reflex To Free T4 3.59 uIU/ml (0.47-4.68)
[2024-08-29 09:15] LABS: Glycohemoglobin (HgbA1c) 5.9 % (4.0-5.6)
== END ==
LOC: REG 15:31
PROVIDERS: ATTENDING PHYSICIAN Internal Medicine; FAMILY PHYSICIAN Family Medicine
DX: T18.9XXA Foreign body of alimentary tract, part unspecified, initial encounter (principal); R73.01 Impaired fasting glucose; R53.83 Other fatigue; Z13.29 Encounter for screening for other suspected endocrine disorder; E55.9 Vitamin D deficiency, unspecified
CPT/HCPCS: 36415; 80053; 82306; 83036; 84443; 85025

== ENCOUNTER → 2024-08-29 16:50 | Outpatient (REF) | payer OTHER, SELFPAY | LOC: RAD 16:50 | PROVIDERS: ATTENDING PHYSICIAN Internal Medicine; FAMILY PHYSICIAN Family Medicine | DX: K56.1 Intussusception (principal); R10.9 Unspecified abdominal pain | CPT/HCPCS: 74177; Q9967 ==

== ENCOUNTER → 2024-09-22 09:38 | Outpatient (REF) | payer OTHER, SELFPAY ==
[2024-09-22 10:33] LABS: % Basophils 0.7 % (0-2); % Eosinophils 5.2 % (0-6); % Immature Granulocytes 0.4 % (0-0.5); % Lymphocytes 32.8 % (20.5-51.1); % Monocytes 9.3 % (1.7-9.3); % Neutrophils 51.6 % (42.2-75.2); Absolute Basophils 0.1 10^3/uL (0-0.2); Absolute Eosinophils 0.4 10^3/uL (0-0.7); Absolute Lymphocytes 2.5 10^3/uL (1.2-3.4); Absolute Monocytes 0.7 10^3/uL (0.1-0.6); Absolute Neutrophils 3.9 10^3/uL (1.4-6.5); Hematocrit 43.2 % (37.0-47.0); Hemoglobin 14.5 g/dL (12.0-16.0); Mean Corp Hgb Conc. 33.6 g/dL (33.0-37.0); Mean Corpuscular Hgb 30.5 pg (27.0-31.0); Mean Corpuscular Volume 90.9 fL (81.0-99.0); Mean Platelet Volume 10.5 fL (7.4-10.4); Nucleated Red Blood Cells % 0 %; Platelet Count 227 10^3/uL (130-400); Red Blood Cell Count 4.75 10^6/uL (4.20-5.40); Red Cell Dist. Width 12.8 % (11.5-14.5); White Blood Cell Count 7.5 10^3/uL (4.8-10.8)
[2024-09-22 10:52] LABS: ALT (SGPT) 53 U/L (0-35); AST (SGOT) 32 U/L (14-36); Albumin 4.4 g/dl (3.5-5.0); Alkaline Phosphatase 53 U/L (38-126); Blood Urea Nitrogen 12 mg/dl (7-17); Calcium 9.7 mg/dl (8.4-10.2); Carbon Dioxide 29 mmol/L (22-30); Chloride 104 mmol/L (98-107); Glucose 106 mg/dl (70-99); Potassium 4.6 mmol/L (3.5-5.1); Sodium 141 mmol/L (135-145); Total Bilirubin 0.9 mg/dl (0.2-1.3); Total Protein 7.4 g/dl (6.3-8.2); eGFR > 60.00
== END ==
LOC: RAD 09:38
PROVIDERS: ATTENDING PHYSICIAN Family Medicine
DX: T18.2XXD Foreign body in stomach, subsequent encounter (principal); Z01.818 Encounter for other preprocedural examination
CPT/HCPCS: 36415; 74018; 80053; 85025

== ENCOUNTER → 2024-09-29 14:43 | Outpatient (REF) | payer OTHER, SELFPAY ==
[2024-09-29 15:57] LABS: % Basophils 0.8 % (0-2); % Eosinophils 5.3 % (0-6); % Immature Granulocytes 0.6 % (0-0.5); % Lymphocytes 33.1 % (20.5-51.1); % Monocytes 7.3 % (1.7-9.3); % Neutrophils 52.9 % (42.2-75.2); Absolute Basophils 0.1 10^3/uL (0-0.2); Absolute Eosinophils 0.5 10^3/uL (0-0.7); Absolute Immature Granulocytes 0.1 10^3/uL (0-0.05); Absolute Monocytes 0.7 10^3/uL (0.1-0.6); Absolute Neutrophils 4.7 10^3/uL (1.4-6.5); Hematocrit 42.8 % (37.0-47.0); Hemoglobin 14.7 g/dL (12.0-16.0); Mean Corp Hgb Conc. 34.3 g/dL (33.0-37.0); Mean Corpuscular Hgb 30.7 pg (27.0-31.0); Mean Corpuscular Volume 89.4 fL (81.0-99.0); Mean Platelet Volume 10.6 fL (7.4-10.4); Nucleated Red Blood Cells % 0 %; Platelet Count 258 10^3/uL (130-400); Red Blood Cell Count 4.79 10^6/uL (4.20-5.40); Red Cell Dist. Width 12.8 % (11.5-14.5); White Blood Cell Count 8.9 10^3/uL (4.8-10.8)
[2024-09-29 16:57] LABS: Ferritin 49.6 ng/ml (11.1-264.0)
[2024-10-02 00:32] LABS: IgA 292 mg/dl (70-400)
[2024-10-02 02:22] LABS: tTG IgA Antibody 1.74 FLU (0.00-4.99)
== END ==
LOC: REG 14:43
PROVIDERS: ATTENDING PHYSICIAN Internal Medicine Gastroenterology; FAMILY PHYSICIAN Family Medicine; OTHER PHYSICIAN Internal Medicine
DX: K56.699 Other intestinal obstruction unspecified as to partial versus complete obstruction (principal)
CPT/HCPCS: 36415; 82728; 82784; 83516; 85025; 86231

== ENCOUNTER → 2024-10-06 09:45 | Outpatient (REF) | payer OTHER, SELFPAY ==
[2024-10-06 10:26] LABS: % Basophils 0.9 % (0-2); % Eosinophils 4.8 % (0-6); % Immature Granulocytes 0.7 % (0-0.5); % Lymphocytes 35.1 % (20.5-51.1); % Monocytes 10.3 % (1.7-9.3); % Neutrophils 48.2 % (42.2-75.2); Absolute Basophils 0.1 10^3/uL (0-0.2); Absolute Eosinophils 0.3 10^3/uL (0-0.7); Absolute Immature Granulocytes 0.1 10^3/uL (0-0.05); Absolute Lymphocytes 2.4 10^3/uL (1.2-3.4); Absolute Monocytes 0.7 10^3/uL (0.1-0.6); Absolute Neutrophils 3.2 10^3/uL (1.4-6.5); Hematocrit 42.8 % (37.0-47.0); Hemoglobin 14.3 g/dL (12.0-16.0); Mean Corp Hgb Conc. 33.4 g/dL (33.0-37.0); Mean Corpuscular Hgb 29.8 pg (27.0-31.0); Mean Corpuscular Volume 89.2 fL (81.0-99.0); Mean Platelet Volume 10.3 fL (7.4-10.4); Nucleated Red Blood Cells % 0 %; Platelet Count 221 10^3/uL (130-400); Red Cell Dist. Width 12.5 % (11.5-14.5); White Blood Cell Count 6.7 10^3/uL (4.8-10.8)
[2024-10-06 11:47] LABS: Ferritin 50.3 ng/ml (11.1-264.0)
[2024-10-06 11:50] LABS: ALT (SGPT) 46 U/L (0-35); AST (SGOT) 27 U/L (14-36); Albumin 4.1 g/dl (3.5-5.0); Alkaline Phosphatase 56 U/L (38-126); Blood Urea Nitrogen 14 mg/dl (7-17); Calcium 9.4 mg/dl (8.4-10.2); Carbon Dioxide 26 mmol/L (22-30); Chloride 107 mmol/L (98-107); Glucose 99 mg/dl (70-99); Potassium 4.3 mmol/L (3.5-5.1); Sodium 142 mmol/L (135-145); Total Bilirubin 0.9 mg/dl (0.2-1.3); eGFR > 60.00
[2024-10-08 02:07] LABS: Quantiferon Mitogen minus NIL 9.95 IU/mL; Quantiferon NIL 0.05 IU/mL; Quantiferon Plus TB1 minus NIL 0.01 IU/mL (<=0.34); Quantiferon Plus TB2 minus NIL 0.01 IU/mL (<=0.34); Quantiferon TB Gold Plus Negative (Negative)
== END ==
LOC: REG 09:45
PROVIDERS: ATTENDING PHYSICIAN Internal Medicine Gastroenterology; FAMILY PHYSICIAN Family Medicine; REFERRING PHYSICIAN Internal Medicine
DX: Z91.041 Radiographic dye allergy status (principal); K56.699 Other intestinal obstruction unspecified as to partial versus complete obstruction
CPT/HCPCS: 36415; 80053; 82728; 85025; 86480

== ENCOUNTER → 2024-10-12 06:59 | Outpatient (REF) | payer OTHER, SELFPAY | LOC: RAD 06:59 | PROVIDERS: ATTENDING PHYSICIAN Internal Medicine; FAMILY PHYSICIAN Family Medicine; REFERRING PHYSICIAN Internal Medicine Gastroenterology | DX: L98.8 Other specified disorders of the skin and subcutaneous tissue (principal) | CPT/HCPCS: 74177; Q9967 ==

== ENCOUNTER 2024-11-09 13:07 | Emergency (ER) | payer OTHER, SELFPAY ==
[2024-11-09 13:21] VITALS: BP 153/93
[2024-11-09 13:51] LABS: % Basophils 0.8 % (0-2); % Eosinophils 5.4 % (0-6); % Immature Granulocytes 0.6 % (0-0.5); % Lymphocytes 27.2 % (20.5-51.1); % Monocytes 16.4 % (1.7-9.3); % Neutrophils 49.6 % (42.2-75.2); Absolute Eosinophils 0.3 10^3/uL (0-0.7); Absolute Lymphocytes 1.3 10^3/uL (1.2-3.4); Absolute Monocytes 0.8 10^3/uL (0.1-0.6); Absolute Neutrophils 2.4 10^3/uL (1.4-6.5); Hematocrit 42.2 % (37.0-47.0); Hemoglobin 14.6 g/dL (12.0-16.0); Mean Corp Hgb Conc. 34.6 g/dL (33.0-37.0); Mean Corpuscular Hgb 30.5 pg (27.0-31.0); Mean Corpuscular Volume 88.3 fL (81.0-99.0); Mean Platelet Volume 10.4 fL (7.4-10.4); Nucleated Red Blood Cells % 0 %; Platelet Count 195 10^3/uL (130-400); Red Blood Cell Count 4.78 10^6/uL (4.20-5.40); Red Cell Dist. Width 12.7 % (11.5-14.5); White Blood Cell Count 4.8 10^3/uL (4.8-10.8)
[2024-11-09 14:04] LABS: ALT (SGPT) 47 U/L (0-35); AST (SGOT) 35 U/L (14-36); Albumin 4.8 g/dl (3.5-5.0); Alkaline Phosphatase 49 U/L (38-126); Blood Urea Nitrogen 12 mg/dl (7-17); Calcium 9.6 mg/dl (8.4-10.2); Carbon Dioxide 25 mmol/L (22-30); Chloride 106 mmol/L (98-107); Glucose 115 mg/dl (70-99); Sodium 143 mmol/L (135-145); Total Bilirubin 0.9 mg/dl (0.2-1.3); Total Protein 7.4 g/dl (6.3-8.2); eGFR > 60.00
[2024-11-09 14:15] LABS: Troponin I < 0.012 ng/ml
[2024-11-09 16:17] VITALS: BP 153/95
--- NOTE | 2024-11-09 16:23 | ED.GENMED ---
History of Present Illness
General
Chief Complaint: Cardiac Symptoms
Source: patient
Exam Limitations: none
Time Seen by Provider: 11/09/24 15:54
History of Present Illness
History of Present Illness:
59yoF with a history of hypertension and LVH presenting for evaluation of chest pain. Patient has been sick for the past several days with viral symptoms including low-grade fevers and diarrhea. She started to experience an aching discomfort in
her left chest this morning. Symptoms seem to only be present for the first few seconds after walking. Symptoms do not persist any longer than a few seconds and she has no pain at rest. She is asymptomatic on initial assessment. She denies any
associated cough, shortness of breath, pleuritic pain, dizziness, syncope, diaphoresis, nausea. No prior history of heart disease. She follows with Dr. Dunne.
Past History
Past History
ED Past Medical History: GERD, HTN, Psychiatric (anxiety) and Other (Distal small bowel obstruction April 2021)
ED Past Surgical History: Cholecystectomy and
Social History
Tobacco: Non-smoker
Alcohol: None
Drug: None
Personal:
Living: with family
Employment: Employed
Family History
Family History: Hypertension
Phy Exam
General Physical Exam
General Presentation: well appearing and no apparent distress
General age: appears stated age
General Skin: warm and dry
General Habitus: normal
General Mental: alert
ENT Exam
ENT Exam: normocephalic
Cardiovascular Exam
Cardiovascular Exam: regular rate/rhythm, no edema and no murmur
Pulmonary Exam
Pulmonary Exam: lungs clear, no respiratory distress, no rales, chest non tender, no crackles and no rhonchi
Neurological Exam
Neurological Exam: alert
Mason Coma Scale
Eye Opening: Spontaneous
Verbal Response: Oriented
Motor Response: Obeys Commands
GCS Total Score: 15
Skin Exam
Skin Exam: normal color and warm/dry
Psychiatric Exam
Psychiatric Exam: normal mood/affect
Course
Orders/Labs/Results
Orders:
Orders
11/09/24 13:24
Electrocardiogram (*1) Urgent
Reason for Study: Chest Pain
EKG- Treatment ONCE
11/09/24 13:38
Complete Blood Count/With Diff Urgent
Comprehensive Metabolic Panel Urgent
Troponin I Urgent
11/09/24 16:08
Cardiac Monitoring- Treatment ONCE
EKG- Treatment ONCE
11/09/24 16:19
Troponin I Urgent
11/09/24 16:30
Electrocardiogram (*1) Urgent
Reason for Study: Chest Pain
Abnormal Lab Results
11/09/24
13:38
Absolute Monos (auto) 0.8 H 10^3/uL
(0.1-0.6)
Immature Gran % 0.6 H %
(0-0.5)
Monocytes % 16.4 H %
(1.7-9.3)
Glucose 115 H mg/dl
(70-99)
ALT 47 H U/L
(0-35)
11/09/24 13:38
11/09/24 13:38
Vital Signs
Initial and Last Documented VS:
Initial Vital Signs
Temp Pulse Resp BP Pulse Ox
97.7 F 76 18 153/93 95
11/09/24 13:21 11/09/24 13:21 11/09/24 13:21 11/09/24 13:21 11/09/24 13:21
Last Documented Vital Signs
Temp Pulse Resp BP Pulse Ox
97.7 F 69 13 157/106 96
11/09/24 13:21 11/09/24 17:15 11/09/24 17:15 11/09/24 17:00 11/09/24 17:00
MDM/Problems Addressed
Differential Diagnosis Includes:
59yoF here with intermittent chest pain since this morning. Aching L sided chest pain. Lasts a few seconds after walking and goes away. Currently asymptomatic. No associated nausea, diaphoresis, SOB. She is mildly hypertensive with otherwise stable
vitals. She is well appearing in no distress. Exam reassuring. Differential diagnosis includes but is not limited to: musculoskeletal, angina, ACS, consider myocarditis given recent illness
Initial ED plan: Cardiac labs and EKG obtained in triage. EKG shows NSR without ischemic changes and troponin WNL. Will check repeat troponin/EKG. Recommended CXR but patient declines given concern for radiation exposure and multiple prior
x-rays/CTs. Do not think this is unreasonable and pulmonary exam is normal and oxygen saturation 96%.
*EKG
Interpreted by ED Provider?: Yes
EKG Intrepretation Date: 11/09/24
Heart Rate: 74
Rate: normal
Rhythm: sinus
[place]: normal axis
Interval: normal interval
QRS Pattern: normal QRS
Ischemia: no ischemia
*Critical Care Note
Total Time (30-74mins, 75-104mins- exclusive of procedures): Not Applicable
Update Note
Update Note:
Repeat troponin and EKG unchanged. She remains asymptomatic on reassessment. Patient stable for discharge. She was advised to follow-up closely with her PCP and sound printer. ED return precautions reviewed. Patient in agreement with plan and was
discharged in stable condition.
ED Attending Note
-
Portions of this chart may have been created with voice recognition software.� Occasional wrong word or��sound alike� substitutions may have occurred due to the inherent limitations of voice recognition software.
Discharge Plan
Departure
Patient Disposition: Home (Routine Discharge)
Date of Disposition: 11/09/24
Time of Disposition: 17:19
Patient with high blood pressure during this ER visit?: Yes
Discharge Problem:
Chest pain
Instructions: Chest Pain (DC)
Prescriptions:
No Action
lorazepam 0.5 MG tablet
0.5 mg PO PRN PRN (Reason: anxiety)
Patient Comments:
04/16/2021: last filled 11/12/17, 30 tabs [facility] from [facility]
taurine 500 MG capsule
1,000 mg PO BID
cholecalciferol (vitamin D3) 1,000 UNITS tablet
4,000 units PO DAILY
nebivolol 10 MG tablet
40 mg PO DAILY
isradipine 2.5 MG capsule
5 mg PO BID
famotidine 40 MG tablet
40 mg PO HS
ethacrynic acid [Edecrin] 25 mg Tablet
12.5 mg PO DAILY
Referrals:
Ruddy Goodman Jr., DO [Family Provider] -
Activity Restrictions/Additional Instructions:
Please follow-up with your family doctor and sound printer. Return to the ER with any new or worsening symptoms.
Interventions
Interventions:
*Risk Screen - Suicide Last Done: 11/09/24 13:21
*General Assessment Last Done: 11/09/24 13:21
*Neglect/Abuse Screening Last Done: 11/09/24 13:21
*ED- Fall Risk Assessment Last Done: 11/09/24 16:25
*ED COVID-19 Vaccine History Last Done: 11/09/24 16:25
*Nursing Disposition Last Done: 11/09/24 18:23
ED- Cardiac Assessment Last Done: 11/09/24 16:25
ED- Pulmonary Assessment Last Done: 11/09/24 16:25
Discharge Date and Time
Discharge Date/Time: 11/09/24 18:23
Print Language: CZECH
[2024-11-09 17:00] VITALS: BP 157/106
[2024-11-09 17:02] LABS: Troponin I < 0.012 ng/ml
== END 2024-11-09 18:23 | disposition home or self-care (01) ==
LOC: EMR 13:07
PROVIDERS: Emergency Medicine; Physician Assistant; EMERGENCY PHYSICIAN Emergency Medicine; FAMILY PHYSICIAN Family Medicine
DX: R07.89 Other chest pain (principal); K21.9 Gastro-esophageal reflux disease without esophagitis; I10 Essential (primary) hypertension; F41.9 Anxiety disorder, unspecified; Z82.49 Family history of ischemic heart disease and other diseases of the circulatory system; Z90.49 Acquired absence of other specified parts of digestive tract
CPT/HCPCS: 99283; 80053; 84484; 85025; 93005

== ENCOUNTER → 2024-12-07 08:28 | Outpatient (REF) | payer OTHER, SELFPAY | LOC: RCS 08:28 | PROVIDERS: ATTENDING PHYSICIAN Physician Assistant; FAMILY PHYSICIAN Family Medicine | DX: I10 Essential (primary) hypertension (principal) | CPT/HCPCS: 93306 ==

== ENCOUNTER → 2024-12-13 08:20 | Outpatient (REF) | payer OTHER, SELFPAY | LOC: RCS 08:20 | PROVIDERS: ATTENDING PHYSICIAN Physician Assistant; FAMILY PHYSICIAN Family Medicine | DX: I10 Essential (primary) hypertension (principal); R07.9 Chest pain, unspecified | CPT/HCPCS: 78452; 93017; A9500 ==

== ENCOUNTER → 2025-03-01 09:28 | Outpatient (REF) | payer OTHER, SELFPAY ==
[2025-03-01 10:10] LABS: Hematocrit 43.2 % (37.0-47.0); Hemoglobin 14.6 g/dL (12.0-16.0); Mean Corp Hgb Conc. 33.8 g/dL (33.0-37.0); Mean Corpuscular Volume 88.3 fL (81.0-99.0); Nucleated Red Blood Cells % 0 %; Platelet Count 229 10^3/uL (130-400); Red Cell Dist. Width 12.5 % (11.5-14.5)
[2025-03-01 10:35] LABS: ALT (SGPT) 46 U/L (0-35); AST (SGOT) 29 U/L (14-36); Albumin 4.6 g/dl (3.5-5.0); Alkaline Phosphatase 55 U/L (38-126); Blood Urea Nitrogen 14 mg/dl (7-17); Calcium 9.9 mg/dl (8.4-10.2); Carbon Dioxide 26 mmol/L (22-30); Chloride 107 mmol/L (98-107); Glucose 96 mg/dl (70-99); HDL Cholesterol 37 mg/dl; LDL Cholesterol, Calculated 126 mg/dl; Potassium 4.2 mmol/L (3.5-5.1); Sodium 140 mmol/L (135-145); Total Protein 7.7 g/dl (6.3-8.2); Very Low Density Lipoprotein 33 mg/dl (0-30); eGFR > 60.00
[2025-03-01 10:47] LABS: Vitamin D, 25-OH*** 51.8 ng/mL (30-80)
[2025-03-01 13:19] LABS: Glycohemoglobin (HgbA1c) 5.8 % (4.0-5.6)
== END ==
LOC: REG 09:28
PROVIDERS: ATTENDING PHYSICIAN Family Medicine; OTHER PHYSICIAN Internal Medicine Cardiovascular Disease
DX: R73.01 Impaired fasting glucose (principal); E78.5 Hyperlipidemia, unspecified; E55.9 Vitamin D deficiency, unspecified; Z13.29 Encounter for screening for other suspected endocrine disorder; R53.83 Other fatigue; E78.2 Mixed hyperlipidemia
CPT/HCPCS: 36415; 80053; 80061; 82306; 83036; 84443; 85025

== ENCOUNTER → 2025-04-19 09:16 | Outpatient (REF) | payer OTHER, SELFPAY | LOC: WDC 09:16 | PROVIDERS: ATTENDING PHYSICIAN Surgery; FAMILY PHYSICIAN Family Medicine | DX: R92.8 Other abnormal and inconclusive findings on diagnostic imaging of breast (principal) | CPT/HCPCS: 76642 ==

== ENCOUNTER → 2025-05-10 09:08 | Outpatient (REF) | payer OTHER, SELFPAY ==
[2025-05-10 09:45] LABS: Hematocrit 43.1 % (37.0-47.0); Hemoglobin 14.7 g/dL (12.0-16.0); Mean Corp Hgb Conc. 34.1 g/dL (33.0-37.0); Mean Corpuscular Volume 88.9 fL (81.0-99.0); Nucleated Red Blood Cells % 0 %; Platelet Count 228 10^3/uL (130-400); Red Cell Dist. Width 12.8 % (11.5-14.5)
[2025-05-10 10:43] LABS: Glycohemoglobin (HgbA1c) 5.8 % (4.0-5.9)
[2025-05-10 10:52] LABS: ALT (SGPT) 43 U/L (0-35); AST (SGOT) 27 U/L (14-36); Albumin 4.6 g/dl (3.5-5.0); Alkaline Phosphatase 55 U/L (38-126); Blood Urea Nitrogen 14 mg/dl (7-17); Calcium 9.7 mg/dl (8.4-10.2); Carbon Dioxide 25 mmol/L (22-30); Chloride 106 mmol/L (98-107); Glucose 97 mg/dl (70-99); Potassium 4.0 mmol/L (3.5-5.1); Sodium 137 mmol/L (135-145); Total Protein 7.7 g/dl (6.3-8.2); eGFR > 60.00
== END ==
LOC: REG 09:08
PROVIDERS: ATTENDING PHYSICIAN Family Medicine
DX: R73.01 Impaired fasting glucose (principal); E78.5 Hyperlipidemia, unspecified; R53.83 Other fatigue; Z13.29 Encounter for screening for other suspected endocrine disorder
CPT/HCPCS: 36415; 80053; 83036; 84443; 85025

== ENCOUNTER → 2025-05-22 14:04 | Outpatient (REF) | payer OTHER, SELFPAY ==
[2025-05-30 22:29] LABS: HPV, High Risk Not Detected; HPV, High Risk Source Cervical
== END ==
LOC: CPAP 14:04
PROVIDERS: ATTENDING PHYSICIAN Obstetrics & Gynecology
DX: Z01.419 Encounter for gynecological examination (general) (routine) without abnormal findings (principal); Z11.51 Encounter for screening for human papillomavirus (HPV)
CPT/HCPCS: 87624; G0123

== ENCOUNTER → 2025-05-30 13:23 | Outpatient (REF) | payer OTHER, SELFPAY ==
[2025-05-31 18:07] LABS: CA 125 < 5.5 U/mL (0-35)
== END ==
LOC: RAD 13:23
PROVIDERS: ATTENDING PHYSICIAN Obstetrics & Gynecology; FAMILY PHYSICIAN Family Medicine
DX: R10.20 Pelvic and perineal pain unspecified side (principal); Z80.41 Family history of malignant neoplasm of ovary
CPT/HCPCS: 36415; 76830; 76856; 86304

== ENCOUNTER → 2025-07-04 08:34 | Outpatient (REF) | payer OTHER, SELFPAY ==
[2025-07-04 10:26] LABS: ALT (SGPT) 44 U/L (0-35); AST (SGOT) 28 U/L (14-36); Albumin 4.4 g/dl (3.5-5.0); Alkaline Phosphatase 67 U/L (38-126); Blood Urea Nitrogen 13 mg/dl (7-17); Calcium 9.6 mg/dl (8.4-10.2); Carbon Dioxide 27 mmol/L (22-30); Chloride 105 mmol/L (98-107); Glucose 97 mg/dl (70-99); HDL Cholesterol 37 mg/dl; LDL Cholesterol, Calculated 78 mg/dl; Potassium 4.2 mmol/L (3.5-5.1); Sodium 141 mmol/L (135-145); Total Protein 7.5 g/dl (6.3-8.2); Very Low Density Lipoprotein 23 mg/dl (0-30); eGFR > 60.00
== END ==
LOC: REG 08:34
PROVIDERS: ATTENDING PHYSICIAN Internal Medicine Cardiovascular Disease; FAMILY PHYSICIAN Family Medicine
DX: E78.2 Mixed hyperlipidemia (principal)
CPT/HCPCS: 36415; 80053; 80061